=== PATIENT | female | born 1945 | race Caucasian/White ===

== ENCOUNTER 2024-05-06 10:52 | Emergency (ER) | payer MEDICARE, SELFPAY ==
[2024-05-06 11:01] VITALS: PULSE 68; TEMP 36.7; O2SAT 97; BMI 21.3
[2024-05-06] MEDS: ADACEL DIPH,PERTUSS(ACELL),TET VAC/PF 0.5 ML ADULT SYRINGE IM (11:38)
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
[2024-05-06] MEDS: LIDOCAINE HCL 1% 100 MG/10 ML MDV INJ (12:00)
== END 2024-05-06 12:09 | disposition home or self-care (01) ==
PROVIDERS: Emergency Provider Emergency Medicine; PCP Family Medicine
DX: S81.812A Laceration without foreign body, left lower leg, initial encounter (principal); Z23 Encounter for immunization; W22.8XXA Striking against or struck by other objects, initial encounter
CPT/HCPCS: 12032; 90471; 90715; 99284